=== PATIENT | male | born 1940 | race Caucasian/White ===

== ENCOUNTER → 2023-12-05 | Outpatient (CLI) | payer OTHER, MEDICARE ==
[~2023-12-05] MED LIST: iohexol 350MG/ML 100ml bottle IV ONE
[2023-12-05 08:30] LABS: BASOPHILS % (AUTO) 0.3 % (0-1); EOSINOPHILS # (AUTO) 0.1 X10'3 (0-0.9); EOSINOPHILS % (AUTO) 1.1 % (0-6); HEMATOCRIT 39.5 % (42.0-52.0); HEMOGLOBIN 12.8 g/dl (14.0-17.9); LYMPHOCYTES # (AUTO) 1.7 X10'3 (1.1-4.8); LYMPHOCYTES % (AUTO) 23.7 % (21-51); MEAN CORPUSCULAR HEMOGLOBIN 27.6 PG (27.0-31.0); MEAN CORPUSCULAR HGB CONC 32.3 g/dL (33.0-36.5); MEAN CORPUSCULAR VOLUME 85.5 FL (78-98); MEAN PLATELET VOLUME 8.3 FL (7.4-10.4); MONOCYTES # (AUTO) 0.9 X10'3 (0-0.9); MONOCYTES % (AUTO) 11.9 % (2-12); NEUTROPHILS # (AUTO) 4.6 X10'3 (1.8-7.7); PLATELET COUNT 324 X10'3 (140-440); RED BLOOD COUNT 4.62 X10'6 (4.70-6.10); RED CELL DISTRIBUTION WIDTH 16.8 % (11.5-14.5); WHITE BLOOD COUNT 7.3 X10'3 (4.5-11.0)
[2023-12-05 08:51] LABS: ALANINE AMINOTRANSFERASE 12 U/L (12-78); ALBUMIN 3.2 G/DL (3.4-5.0); ALBUMIN/GLOBULIN RATIO 0.7 (1.1-1.5); ALKALINE PHOSPHATASE 50 IU/L (46-116); ANION GAP 8 (8-16); ASPARTATE AMINO TRANSFERASE 17 U/L (10-37); BILIRUBIN,TOTAL 0.7 MG/DL (0.1-1.0); BLOOD UREA NITROGEN 27 MG/DL (7-18); BUN/CREATININE RATIO 18.1 (10.0-20.0); CALCIUM 9.6 MG/DL (8.5-10.1); CHLORIDE 100 MMOL/L (99-107); CREATININE 1.49 MG/DL (0.60-1.10); GLUCOSE 116 MG/DL (70-104); POTASSIUM 4.2 MMOL/L (3.5-5.1); SODIUM 137 MMOL/L (135-145); TOTAL CARBON DIOXIDE 28.6 MMOL/L (24-32); TOTAL PROTEIN 7.9 G/DL (6.4-8.2); eGFR 45 ML/MIN
[2023-12-05 08:52] LABS: APTT 36 SECONDS (22-32); INR 1.1 INR; PROTHROMBIN TIME 11.9 SECONDS (9.0-12.0)
== END | disposition home or self-care (01) ==
LOC: RAD 07:56
PROVIDERS: ATTEND Student in an Organized Health Care Education/Training Program
DX: I48.91 Unspecified atrial fibrillation (principal); I48.92 Unspecified atrial flutter; I25.10 Atherosclerotic heart disease of native coronary artery without angina pectoris; J84.10 Pulmonary fibrosis, unspecified; M47.816 Spondylosis without myelopathy or radiculopathy, lumbar region; Z90.49 Acquired absence of other specified parts of digestive tract
CPT/HCPCS: 36415; 75572; 80053; 85025; 85610; 85730; 93005; J3490; Q9967

== ENCOUNTER 2024-01-08 09:26 | Inpatient (IN) | payer OTHER, MEDICARE ==
[2024-01-02 11:13] LABS: BILIRUBIN,URINE NEGATIVE (Neg); CLARITY,URINE CLEAR (Clear); COLOR,URINE YELLOW (Yellow); GLUCOSE, URINE NEGATIVE (Neg); KETONES,URINE NEGATIVE (Neg); LEUKOCYTE ESTERASE ,URINE NEGATIVE (Neg); NITRITES, URINE NEGATIVE (Neg); OCCULT BLOOD,URINE NEGATIVE (Neg); PROTEIN,URINE NEGATIVE (Neg)
[2024-01-02 11:22] LABS: BASOPHILS % (AUTO) 0.2 % (0-1); EOSINOPHILS # (AUTO) 0.1 X10'3 (0-0.9); EOSINOPHILS % (AUTO) 0.8 % (0-6); LYMPHOCYTES # (AUTO) 1.8 X10'3 (1.1-4.8); LYMPHOCYTES % (AUTO) 20.7 % (21-51); MEAN CORPUSCULAR HEMOGLOBIN 27.5 PG (27.0-31.0); MEAN CORPUSCULAR HGB CONC 32.5 g/dL (33.0-36.5); MEAN CORPUSCULAR VOLUME 84.5 FL (78-98); MEAN PLATELET VOLUME 8.8 FL (7.4-10.4); MONOCYTES % (AUTO) 11.3 % (2-12); PRE OP HEMATOCRIT 42.3 % (42.0-52.0); PRE OP HEMOGLOBIN 13.8 g/dL (14.0-17.9); PRE OP PLATELET COUNT 363 X10'3 (140-440); PRE OP WHITE BLOOD COUNT 8.9 10'3 (4.8-10.8); RED BLOOD COUNT 5.01 X10'6 (4.70-6.10); RED CELL DISTRIBUTION WIDTH 17.7 % (11.5-14.5)
[2024-01-02 11:27] LABS: PRE OP INR 1.1 INR; PRE OP PROTIME 11.6 SECONDS (9.0-12.0)
[2024-01-02 11:30] LABS: UA COLLECTION TYPE CLN CATCH MIDSTREAM
[2024-01-02 11:33] LABS: ALBUMIN 3.4 G/DL (3.4-5.0); ALBUMIN/GLOBULIN RATIO 0.8 (1.1-1.5); ALKALINE PHOSPHATASE 51 IU/L (46-116); BLOOD UREA NITROGEN 34 MG/DL (7-18); BUN/CREATININE RATIO 24.5 (10.0-20.0); CALCIUM 9.8 MG/DL (8.5-10.1); CHLORIDE 103 MMOL/L (99-107); CREATININE 1.39 MG/DL (0.60-1.10); PRE OP ALT 17 U/L (30-65); PRE OP ANION GAP 9 (8-16); PRE OP AST 14 U/L (10-37); PRE OP BILIRUB, TOTAL 0.7 MG/DL (0.0-1.0); PRE OP GLUCOSE 106 MG/DL (70-104); PRE OP POTASSIUM 4.4 MMOL/L (3.4-5.1); PRE OP SODIUM 141 MMOL/L (135-145); TOTAL CARBON DIOXIDE 28.6 MMOL/L (24-32); TOTAL PROTEIN 7.8 G/DL (6.4-8.2); eGFR 49 ML/MIN
[2024-01-08] VITALS (24 sets, daily range): BP systolic 124–163; BP diastolic 75–106; PULSE 86–100; RESP 12–20; TEMP 97.8; O2SAT 94–99
[~2024-01-08] VITALS: Ht 182.9 cm; Wt 95.9 kg
[~2024-01-08 09:26] MED LIST changes: +ALLO300T8 PO; +ATOR10TA87 PO; +BACL10TA PO; +CHOL200074 PO; +DICL100G59 TOP; +DOCUMENT DATE & TIME OF BETA-BLOCKER PO ONE; +DULO60CA65 PO; +FAMO40TA7 PO; +FENO48TA15 PO; +FLUT9.9S BOTHNARES; +LIDO700A47 TOP; +METO100T14 PO; +RIVA15TA PO; +TELM80TA9 PO; -iohexol 350MG/ML 100ml bottle IV ONE; +ondansetron/PF 4mg/2ml inj IV PRN
[2024-01-08] MEDS: ringers solution, lacted 1,000 ML IV SCH (10:42)
[2024-01-08] MEDS: vancomycin 1,500 MG in NS 300ml IV soln IV ONE (10:42)
[2024-01-08] MEDS: famotidine 20mg tablet PO ONE (10:42)
[2024-01-08] MEDS ORDERED: iohexol 350 MG/ML 50ML vial IV ONE (13:25)
[2024-01-08] MEDS ORDERED: glycopyrrolate 0.2mg/ml inj ONE (13:43)
[2024-01-08] MEDS ORDERED: dexamethasone sod phosphate 10mg/ml inj ONE (13:43)
[2024-01-08] MEDS ORDERED: neostigmine methylsulfate 1 MG/ML 10ml vial ONE (13:43)
[2024-01-08] MEDS ORDERED: desflurane 240ml liquid inh. IH ONE (13:43)
[2024-01-08] MEDS ORDERED: LIDOcaine 2% (20mg/ml) 5ml vial ONE (13:43)
[2024-01-08] MEDS ORDERED: baclofen 10mg tablet PO PRN (14:20)
[2024-01-08] MEDS ORDERED: famotidine 20mg tablet PO PRN (14:20)
[2024-01-08] MEDS ORDERED: LIDOcaine 1% (10mg/ml) 2ml vial ONE (14:29)
[2024-01-08] MEDS ORDERED: midazolam 1 mg/ML 2ml injection ONE (14:30)
[2024-01-08] MEDS ORDERED: propofol inj 20 ML IV ONE (14:31)
[2024-01-08] MEDS ORDERED: heparin 1,000unit/ml 10ml vial 10 ML ONE (14:33)
[2024-01-08] MEDS ORDERED: pantoprazole 40mg Tablet.DR PO PRN (14:45)
[2024-01-08] MEDS ORDERED: proCHLORperazine 10 MG/2 ml inj IV PRN (14:45)
[2024-01-08] MEDS ORDERED: potassium Cl 40MEQ/1/2NS 520ml 520 ML IV PRN (14:45)
[2024-01-08] MEDS ORDERED: potassium CL 10mEq/100ml bag 100 ML IV PRN (14:45)
[2024-01-08] MEDS ORDERED: hydrALAZINE 20mg/ml inj. IV PRN (14:45)
[2024-01-08] MEDS ORDERED: potassium Cl 20mEq/100mL bag 100 ML IV PRN (14:45)
[2024-01-08] MEDS ORDERED: docusate sod 100mg capsule PO PRN (14:45)
[2024-01-08] MEDS ORDERED: ondansetron/PF 4mg/2ml inj IV PRN (14:45)
[2024-01-08] MEDS ORDERED: ALPRAZolam 0.25mg tablet PO PRN (14:45)
[2024-01-08] MEDS ORDERED: labetalol 20mg/4ml (5mg/ml) syringe IV PRN (14:45)
[2024-01-08] MEDS ORDERED: magnesium 2GM in 50ml NS 50 ML IV PRN (14:45)
[2024-01-08] MEDS ORDERED: acetaminophen 325mg tablet PO PRN (14:45)
[2024-01-08] MEDS ORDERED: diphenhydrAMINE 25mg capsule PO PRN (14:45)
[2024-01-08] MEDS ORDERED: magnesium 4gm in 100ml NS 100 ML IV PRN (14:45)
[2024-01-08] MEDS: normal saline 1000ml 1,000 ML IV SCH (14:45)
[2024-01-08] MEDS ORDERED: potassium Cl 20 mEq SR tablet PO PRN (14:45)
[2024-01-08] MEDS ORDERED: potassium Cl 40MEQ/270ML bag 250 ML IV PRN (14:45)
[2024-01-08] MEDS ORDERED: fentaNYL/PF 50MCG/1 ML 2ML syringe ONE (14:48)
[2024-01-08] MEDS ORDERED: rocuronium 10mg/ml inj IV ONE (15:11)
[2024-01-08] MEDS: sod chloride 0.9% 10ml flush syringe IV SCH (16:00)
[2024-01-08] MEDS ORDERED: meperidine/PF 25mg/ml syringe ONE (16:16)
[2024-01-08] MEDS ORDERED: ondansetron/PF 4mg/2ml inj ONE (16:17)
[2024-01-08] MEDS ORDERED: metoprolol tartrate 1mg/ml inj IV ONE (16:30)
[2024-01-08] MEDS: rivaroxaban 15mg tablet PO SCH (19:37)
[2024-01-09 06:00] VITALS: BP 133/76; PULSE 98; RESP 11; TEMP 97.5; O2SAT 99
[2024-01-09 06:55] LABS: BASOPHILS % (AUTO) 0.1 % (0-1); EOSINOPHILS % (AUTO) 0 % (0-6); HEMATOCRIT 36.4 % (42.0-52.0); LYMPHOCYTES # (AUTO) 0.8 X10'3 (1.1-4.8); LYMPHOCYTES % (AUTO) 12.8 % (21-51); MEAN CORPUSCULAR HEMOGLOBIN 27.7 PG (27.0-31.0); MEAN CORPUSCULAR HGB CONC 33.1 g/dL (33.0-36.5); MEAN CORPUSCULAR VOLUME 83.7 FL (78-98); MEAN PLATELET VOLUME 8.4 FL (7.4-10.4); MONOCYTES # (AUTO) 0.4 X10'3 (0-0.9); MONOCYTES % (AUTO) 6.9 % (2-12); NEUTROPHILS # (AUTO) 4.9 X10'3 (1.8-7.7); NEUTROPHILS % (AUTO) 80.2 % (42-75); PLATELET COUNT 285 X10'3 (140-440); RED BLOOD COUNT 4.35 X10'6 (4.70-6.10); RED CELL DISTRIBUTION WIDTH 17.2 % (11.5-14.5); WHITE BLOOD COUNT 6.1 X10'3 (4.5-11.0)
[2024-01-09 07:03] LABS: INR 1.1 INR; PROTHROMBIN TIME 11.8 SECONDS (9.0-12.0)
[2024-01-09 07:23] LABS: ALANINE AMINOTRANSFERASE 13 U/L (12-78); ALBUMIN 2.9 G/DL (3.4-5.0); ALBUMIN/GLOBULIN RATIO 0.7 (1.1-1.5); ALKALINE PHOSPHATASE 44 IU/L (46-116); ANION GAP 10 (8-16); ASPARTATE AMINO TRANSFERASE 8 U/L (10-37); BILIRUBIN,TOTAL 0.5 MG/DL (0.1-1.0); BLOOD UREA NITROGEN 29 MG/DL (7-18); CALCIUM 9.2 MG/DL (8.5-10.1); CHLORIDE 103 MMOL/L (99-107); CREATININE 1.32 MG/DL (0.60-1.10); GLUCOSE 135 MG/DL (70-104); MAGNESIUM 1.9 MG/DL (1.5-2.4); POTASSIUM 4.1 MMOL/L (3.5-5.1); PRO BRAIN NATRIURETIC PEPTIDE 2595 PG/ML (0-450); SODIUM 139 MMOL/L (135-145); TOTAL CARBON DIOXIDE 25.6 MMOL/L (24-32); TOTAL PROTEIN 6.8 G/DL (6.4-8.2); eCRCL 45 ML/MIN; eGFR 52 ML/MIN
[2024-01-09] MEDS: metoprolol tartrate 50mg tablet PO SCH (08:00)
[2024-01-09 11:00] VITALS: BP 116/78; PULSE 98; RESP 17; TEMP 97.7; O2SAT 100
[2024-01-09] MEDS: allopurinol 300 MG tablet PO SCH (12:21)
[2024-01-09 12:22] VITALS: BP_SYST 116; PULSE 98
[2024-01-09] MEDS: losartan 50mg tablet PO SCH (12:22)
[2024-01-09] MEDS: atorvastatin 10mg tablet PO SCH (12:23)
[2024-01-09] MEDS: fenofibrate 48mg tablet PO SCH (12:23)
[2024-01-09] MEDS: duloxetine 30mg CAPSULE.DR PO SCH (12:23)
[2024-01-09] MEDS ORDERED: allopurinol 300 MG tablet PO SCH (15:09)
== END 2024-01-09 16:00 | disposition home or self-care (01) | DRG 274 ==
LOC: PAS IN 09:26 → PCU 3S 18:45
PROVIDERS: ADMIT Student in an Organized Health Care Education/Training Program; ATTEND Student in an Organized Health Care Education/Training Program
PROC: B24BZZ4 Ultrasonography of Heart with Aorta, Transesophageal (ICD-10-PCS; 2024-01-08)
PROC: 03HY32Z Insertion of Monitoring Device into Upper Artery, Percutaneous Approach (ICD-10-PCS; 2024-01-08)
PROC: 02L73DK Occlusion of Left Atrial Appendage with Intraluminal Device, Percutaneous Approach (ICD-10-PCS; principal; 2024-01-08 13:43)
DX: I48.19 Other persistent atrial fibrillation (principal); Z00.6 Encounter for examination for normal comparison and control in clinical research program; E78.5 Hyperlipidemia, unspecified; G89.29 Other chronic pain; N18.9 Chronic kidney disease, unspecified; G47.33 Obstructive sleep apnea (adult) (pediatric); M54.9 Dorsalgia, unspecified; I13.10 Hypertensive heart and chronic kidney disease without heart failure, with stage 1 through stage 4 chronic kidney disease, or unspecified chronic kidney disease; Z88.0 Allergy status to penicillin
CPT/HCPCS: 33340; 36415; 71045; 71046; 76937; 80053; 81003; 82948; 83735; 83880; 85025; 85347; 85610; 85730; 86885; 86900; 86901; 86920; 87081; 93005; 93308; 93312; 93325; A4618; A6258; A6449; C1760; C1889; C1893; G0378; J1100; J1644; J2175; J2250; J2405; J2704; J2710; J3010; J3370; J3490; J7030; J7040; J7120; Q9967

== ENCOUNTER 2024-02-24 11:08 | Day surgery (SDC) | payer OTHER, MEDICARE ==
[~2024-02-24] VITALS: Ht 182.9 cm; Wt 97.3 kg
[2024-02-24] VITALS (13 sets, daily range): BP systolic 129–145; BP diastolic 84–95; PULSE 84–98; RESP 16; TEMP 98.2; O2SAT 97–100
[~2024-02-24 11:08] MED LIST changes: -DOCUMENT DATE & TIME OF BETA-BLOCKER PO ONE; -ondansetron/PF 4mg/2ml inj IV PRN
[2024-02-24 12:11] LABS: BASOPHILS % (AUTO) 0.3 % (0-1); EOSINOPHILS # (AUTO) 0.1 X10'3 (0-0.9); EOSINOPHILS % (AUTO) 1.1 % (0-6); HEMATOCRIT 39.1 % (42.0-52.0); HEMOGLOBIN 12.7 g/dl (14.0-17.9); LYMPHOCYTES # (AUTO) 1.6 X10'3 (1.1-4.8); LYMPHOCYTES % (AUTO) 29.1 % (21-51); MEAN CORPUSCULAR HEMOGLOBIN 27.7 PG (27.0-31.0); MEAN CORPUSCULAR HGB CONC 32.5 g/dL (33.0-36.5); MEAN CORPUSCULAR VOLUME 85.1 FL (78-98); MEAN PLATELET VOLUME 8.3 FL (7.4-10.4); MONOCYTES # (AUTO) 0.9 X10'3 (0-0.9); MONOCYTES % (AUTO) 15.8 % (2-12); NEUTROPHILS % (AUTO) 53.7 % (42-75); PLATELET COUNT 264 X10'3 (140-440); RED BLOOD COUNT 4.59 X10'6 (4.70-6.10); RED CELL DISTRIBUTION WIDTH 17.3 % (11.5-14.5); WHITE BLOOD COUNT 5.6 X10'3 (4.5-11.0)
[2024-02-24 12:18] LABS: ALBUMIN 3.1 G/DL (3.4-5.0); ANION GAP 10 (8-16); BLOOD UREA NITROGEN 26 MG/DL (7-18); BUN/CREATININE RATIO 20.2 (10.0-20.0); CALCIUM 9.2 MG/DL (8.5-10.1); CHLORIDE 102 MMOL/L (99-107); CREATININE 1.29 MG/DL (0.60-1.10); GLUCOSE 97 MG/DL (70-104); POTASSIUM 4.2 MMOL/L (3.5-5.1); SODIUM 138 MMOL/L (135-145); TOTAL CARBON DIOXIDE 26.1 MMOL/L (24-32); eCRCL 46 ML/MIN; eGFR 53 ML/MIN
[2024-02-24 12:22] LABS: APTT 34 SECONDS (22-32); INR 1.1 INR; PROTHROMBIN TIME 11.5 SECONDS (9.0-12.0)
[2024-02-24 12:33] LABS: PLATELET ESTIMATE NORMAL; TOTAL CELLS COUNTED 100
[2024-02-24] MEDS: MIDAZolam 1mg/ml 10ml vial IV ONE (12:33)
[2024-02-24] MEDS: fentaNYL/PF 50MCG/1 ML 2ML syringe IV ONE (12:33)
[2024-02-24 12:34] LABS: ANISOCYTOSIS 1+
== END 2024-02-24 14:00 | disposition home or self-care (01) ==
LOC: SSTAY O 11:08
PROVIDERS: ATTEND Student in an Organized Health Care Education/Training Program
DX: I48.91 Unspecified atrial fibrillation (principal); I51.7 Cardiomegaly; Z88.0 Allergy status to penicillin
CPT/HCPCS: 36415; 80048; 85025; 85610; 85730; 93312; 93325; J2250; J3010; J7030; 85007; A4620